=== PATIENT | female | born 1945 | race Caucasian/White ===

== ENCOUNTER → 2017-10-27 08:50 | Outpatient (REF) | payer BC, SELFPAY ==
[2017-10-27 18:40] LABS: Absolute Basophil Count 0.02 k/cumm (0.0-0.2); Absolute Eosinophil Count 0.09 k/cumm (0.0-0.7); Absolute Lymphocyte Count 0.84 k/cumm (1.2-3.4); Absolute Monocyte Count 0.36 k/cumm (0.11-0.7); Absolute Neutrophil Count 1.95 k/cumm (1.2-6.7); Basophils % 0.6; Eosinophils % 2.8; HCT 39.8 % (36.0-46.0); Lymphocytes % 25.8; Mean Corp. HGB Concentration 32.7 g/dL (32.0-36.0); Mean Corpuscular Hemoglobin 29.1 pg (27.0-33.0); Mean Corpuscular Volume 89.2 fL (80-95); Mean Platelet Volume 9.5 fL (8.0-11.0); Neutrophils % 59.8; Platelet Count 242 x1000/uL (130-400); RBC 4.46 m/cumm (4.00-5.20); RBC Distribution Width 12.9 % (11.7-14.6); White Blood Cell Count 3.26 k/cumm (4.4-10.8)
[2017-10-27 18:48] LABS: Anion Gap 4.6 mmol/L (3-11); BUN 14 mg/dL (7-18); CO2 29.4 mmol/L (21.0-32.0); CREATININE 0.73 mg/dL (0.55-1.02); Calcium 9.2 mg/dL (8.5-10.1); Chloride 108 mmol/L (98-107); Glucose 88 mg/dL (70-100); Potassium 4.6 mmol/L (3.5-5.1); Sodium 142 mmol/L (136-145)
== END ==
LOC: NCHCN 08:50
PROVIDERS: PCP Family Medicine; Visit Provider Family Medicine
DX: I10 Essential (primary) hypertension (principal); D70.9 Neutropenia, unspecified
CPT/HCPCS: 80048; 85025

== ENCOUNTER 2017-12-08 00:13 | Outpatient (CLI) | payer BC, SELFPAY ==
--- NOTE | 2017-12-08 10:15 | DI.MAMMO_ITS ---
SYMPTOM/DIAGNOSIS:SCREENING, Z12.31 MAMMOGRAMS: Mammograms were interpreted according to the usual protocol including computer analysis with CAD system, tomosynthesis and C view imaging. Comparison with prior examinations. Breast density B. No masses or microcalcifications are seen. There is nothing to suggest malignancy. IMPRESSION: Negative mammogram. Routine screening is recommended. Category I. MQSA ASSESSMENT OF FINDINGS: Negative. Category 1. Patient will receive a letter notifying them of these results. BI-RADS category B. There are scattered areas of fibroglandular density.
== END 2017-12-08 00:33 ==
PROVIDERS: PCP Family Medicine; Visit Provider Family Medicine
DX: Z12.31 Encounter for screening mammogram for malignant neoplasm of breast (principal)
CPT/HCPCS: 77063; 77067

== ENCOUNTER 2018-12-09 01:27 | Outpatient (CLI) | payer BC, SELFPAY ==
--- NOTE | 2018-12-09 10:48 | DI.MAMMO_ITS ---
EXAM: MAMMO SCREENING CLINICAL HISTORY: SCREENING Z12.31. TECHNIQUE: Mammograms were interpreted according to the usual protocol including computer analysis with CAD system, tomosynthesis and C-view imaging. FINDINGS: The breasts are of moderate density with fairly symmetrical distribution of fibroglandular tissue. No dominant mass or clumped microcalcification is identified in either breast. Current examination is c ompared with previous examinations including December 2017 and there has been no gross interval change in appearance in comparison with the previous studies. IMPRESSION: No specific evidence of malignancy at this time. Routine screening examinations are suggested at year ly intervals due to the family history of breast carcinoma. Category 1. Breast density, category B. BI-RADS Cat 1 - Negative. Breast Density - Category B - Scattered areas of fibroglandular density.
== END 2018-12-09 01:47 ==
PROVIDERS: PCP Family Medicine; Visit Provider Family Medicine
DX: Z12.31 Encounter for screening mammogram for malignant neoplasm of breast (principal); Z80.3 Family history of malignant neoplasm of breast
CPT/HCPCS: 77063; 77067

== ENCOUNTER 2019-11-12 16:28 | Outpatient (REF) | payer BC, SELFPAY ==
[2019-11-12 20:32] LABS: HCT 39.9 % (36.0-46.0); MCH 29.4 pg (27.0-33.0); MCHC 32.6 % (32.0-36.0); MCV 90.3 fL (80-95); MPV 9.7 fL (8.0-11.0); Platelet Count 259 10^3/uL (130-400); RBC 4.42 10^6/uL (3.93-5.22); RDW 12.5 % (11.7-14.6); RDW-SD 41.2 fL; WBC 5.74 10^3/uL (4.4-10.8)
[2019-11-12 21:09] LABS: ALT 20 U/L (14-59); AST 17 U/L (15-37); Albumin 3.8 g/dL (3.4-5.0); Alkaline Phosphatase 64 U/L (46-116); Anion Gap 5.9 mmol/L (3-11); BUN 14 mg/dL (7-18); Bilirubin, Total 0.3 mg/dL (0.2-1.0); CO2 30.1 mmol/L (21.0-32.0); CREATININE 0.76 mg/dL (0.55-1.02); Chloride 104 mmol/L (98-107); Glucose 116 mg/dL (74-106); Potassium 3.8 mmol/L (3.5-5.1); Sodium 140 mmol/L (136-145); TSH (W/Ref FT4) 0.28 uIU/mL (0.36-3.74); Total Protein 6.8 g/dL (6.4-8.2); Vitamin B12 378 pg/mL (193-986)
[2019-11-12 21:10] LABS: Folate > 20.0 ng/mL (8.6-20.0)
[2019-11-15 12:00] LABS: Syphilis Serology (RPR) Negative (Negative)
== END 2019-11-12 16:48 ==
LOC: NCHCN 16:28
PROVIDERS: PCP Family Medicine; Visit Provider Family Medicine
DX: R41.3 Other amnesia (principal); D70.9 Neutropenia, unspecified; I10 Essential (primary) hypertension
CPT/HCPCS: 80053; 85027; 82607; 82746; 84439; 84443; 86592

== ENCOUNTER 2019-11-24 01:17 | Outpatient (CLI) | payer BC, SELFPAY ==
--- NOTE | 2019-11-24 | DI.MRI_ITS ---
EXAM: MR BRAIN WO CLINICAL HISTORY: MEMORY DEFICIT,R41.3 TECHNIQUE: Multiplanar multisequence MRI of the brain was performed. COMPARISON: No exams were available for comparison FINDINGS: VENTRICLES AND EXTRA AXIAL SPACES: Normal in size and morphology for the patient's age. MIDLINE SHIFT: None. CEREBRAL PARENCHYMA: No focus of restricted diffusion to suggest acute infarct. No space-occupying le marnie identified. HEMORRHAGE: None. BRAINSTEM/CEREBELLUM: Normal. CALVARIUM: Normal. VISUALIZED PARANASAL SINUSES/MASTOIDS:Clear. [place]OM[place] OF URIBE: Normal flow void. PITUITARY GLAND: Unremarkable. OTHER FINDINGS: None. IMPRESSION: Unremarkable MRI of the brain. DATA REPOSITORY:
== END 2019-11-24 01:37 ==
PROVIDERS: PCP Family Medicine; Visit Provider Family Medicine
DX: R41.3 Other amnesia (principal)
CPT/HCPCS: 70551

== ENCOUNTER 2020-02-15 19:47 | Outpatient (REF) | payer BC, SELFPAY ==
[2020-02-15 15:30] LABS: TSH (W/Ref FT4) 0.75 uIU/mL (0.36-3.74); Vitamin B12 538 pg/mL (193-986)
[2020-02-15 21:26] LABS: T3,Free 3.7 pg/mL (2.8-5.3)
[2020-02-15 22:48] LABS: Thyroperoxidase Antibody <28 U/mL (<=60)
[2020-02-16 16:40] LABS: Thyrotropin Receptor Ab <1.10 IU/L
[2020-02-17 15:09] LABS: Thyroglobulin Antibody 15 U/mL (<=60)
== END 2020-02-15 20:07 ==
LOC: NCHCN 19:47
PROVIDERS: PCP Family Medicine; Visit Provider Family Medicine
DX: E05.80 Other thyrotoxicosis without thyrotoxic crisis or storm (principal); E53.8 Deficiency of other specified B group vitamins
CPT/HCPCS: 82607; 84235; 84443; 84481; 86376; 86800

== ENCOUNTER 2020-05-22 02:23 | Outpatient (CLI) | payer BC, SELFPAY ==
--- NOTE | 2020-05-22 | DI.MAMMO_ITS ---
EXAM: MG MAMMO SCREENING CLINICAL HISTORY: SCREENING, Z12.31. TECHNIQUE: Bilateral full field digital CC and MLO mammographic images were obtained with 3D tomosyn thesis and utilizing computer aided detection (CAD). COMPARISON: Prior mammograms dating back to 2010, the most recent being 2019.. Significant family history. Her sister was diagnosed with breast cancer at age 40. FINDINGS: There are no new spiculated masses nor malignant appearing microcalcification groups. Numerous benign-appearing microcalcifications in both breasts are unchanged. There is no significant architectural distortion nor skin thickening-retraction. IMPRESSION: Benign findings. No radiographic evidence of malignancy. BI-RADS Category 2 - Benign Findings Breast Density - Category B - Scattered areas of fibroglandular density Breast density Category C or D implies that the patient has dense breast tissue. Dense breast tissue can make it harder to find cancer on a mammogram. Dense breast tissue is also associated with an incr eased risk of breast cancer. This information about the result of the mammogram report was provided to the patient to raise their awareness. Use this report when you speak with the patient about their risks for breast cancer, which includes their family history. At that time, you may recommend additional screening tests (Ultrasoun d or MRI) as these tests may add significant information. A negative radiographic report should not delay biopsy if a dominant or clinically suspicious mass is present. Up to ten percent of cancers are not identified on mammography. A negative report may reinforce clinical impression. Adenosis and dense breasts may obscure an underlying neoplasm. False positive reports average 6 to 10%. Patient will receive a letter notifying them of these results.
== END 2020-05-22 02:43 ==
PROVIDERS: PCP Family Medicine; Visit Provider Family Medicine
DX: Z12.31 Encounter for screening mammogram for malignant neoplasm of breast (principal)
CPT/HCPCS: 77063; 77067

== ENCOUNTER 2020-12-04 16:46 | Outpatient (REF) | payer BC, SELFPAY ==
[2020-12-04 20:50] LABS: Anion Gap 5.7 mmol/L (3-11); BUN 14 mg/dL (7-18); CO2 31.3 mmol/L (21.0-32.0); CREATININE 0.8 mg/dL (0.55-1.02); Calcium 9.2 mg/dL (8.5-10.1); Chloride 104 mmol/L (98-107); Glucose 107 mg/dL (74-106); Potassium 3.9 mmol/L (3.5-5.1); Sodium 141 mmol/L (136-145); TSH (W/Ref FT4) 0.36 uIU/mL (0.36-3.74); Vitamin B12 1047 pg/mL (193-986)
[2020-12-04 20:52] LABS: Folate > 20.0 ng/mL (8.6-20.0)
== END 2020-12-04 16:47 | disposition home or self-care (01) ==
LOC: NCHCN 16:46
PROVIDERS: PCP Family Medicine; Visit Provider Family Medicine
DX: I10 Essential (primary) hypertension (principal); E53.8 Deficiency of other specified B group vitamins; D70.9 Neutropenia, unspecified
CPT/HCPCS: 80048; 82607; 82746; 84443

== ENCOUNTER 2021-05-24 02:03 | Outpatient (CLI) | payer BC, SELFPAY ==
--- NOTE | 2021-05-24 12:30 | DI.MAMMO_ITS ---
Exam(s) MAMMO SCREENING EXAM: MAMMO SCREENING CLINICAL HISTORY: SCREENING, Z12.31 TECHNIQUE: Bilateral full field digital CC and MLO mammographic images were obtained with 3D tomosyn thesis and utilizing computer aided detection (CAD). COMPARISON: Available for comparison. FINDINGS: Masses/Architectural Distortion: None seen. Microcalcifications: No suspicious pleomorphic-type are seen. Skin Thickening/Nipple Retraction: None. IMPRESSION: 1. No significant interval change with no specific features of malignancy noted. 2. Unless there is more urgent need, screening mammography is recommended, as per [employer] guidelines. BI-RADS Category 1 - Negative Breast Density - Category B - Scattered areas of fibroglandular density Breast density category C or D implies that the patient has dense breast tissue. Dense breast tissue is very common and is not abnormal but dense breast tissue can make it harder to find cancer on a ma mmogram. Also, dense breast tissue may increase their breast cancer risk. This information about the result of the mammogram report was provided to the patient to raise their awareness. Use this report when you speak with the patient about their risks for breast cancer, which includes their family hist ory. At that time, you may recommend for more screening tests (Ultrasound or MRI) as they might be us eful based on their risk. A negative radiographic report should not delay biopsy if a dominant or clinically suspicious mass is present. Up to ten percent of cancers are not identified on mammography. A negative report may reinforce clinical impression. Adenosis and dense breasts may obscure an underlying neoplasm. False positive reports average 6 to 10%. Patient will receive a letter notifying them of these results.
--- NOTE | 2021-05-24 13:00 | DI.DEXA_ITS ---
Exam(s) XR DEXA BONE DENSITY W/WO KYLAH EXAM: XR DEXA BONE DENSITY W/WO KYLAH CLINICAL HISTORY: OSTEOPENIA, M85.80 TECHNIQUE: COMPARISON: Comparison 10/17/2015. FINDINGS: Lateral Spine Image: Unremarkable. No compression deformities identified. Left hip: Total T-Score: -1.0. This compares to -0.1 on the prior examination. Total Z-Score: 0.9 T- and Z-scores: Within normal limits. Lumbar Spine: Total T-Score: 0.2. This compares to 0.8 on the prior examination. Total Z-Score: 2.7 T- and Z-scores: Within normal limits. IMPRESSION: No evidence of osteoporosis in the left hip or lumbar spine. There has been a decrease in the bone m ineral density since the prior examination.
== END 2021-05-24 02:23 ==
PROVIDERS: PCP Family Medicine; Visit Provider Family Medicine
DX: Z13.820 Encounter for screening for osteoporosis (principal)
CPT/HCPCS: 77063; 77067; 77080

== ENCOUNTER 2021-12-14 15:28 | Outpatient (REF) | payer BC, SELFPAY ==
[2021-12-14 16:40] LABS: HCT 39.1 % (36.0-46.0); HGB 12.9 g/dL (11.2-15.7); MCH 29.2 pg (27.0-33.0); MCV 89 fL (80-95); MPV 9.8 fL (8.0-11.0); Platelet Count 230 10^3/uL (130-400); RBC 4.42 10^6/uL (3.93-5.22); RDW 12.4 % (11.7-14.6); RDW-SD 40.5 fL; WBC 3.74 10^3/uL (4.4-10.8)
[2021-12-14 17:04] LABS: Anion Gap 6.2 mmol/L (3-11); BUN 14 mg/dL (7-18); CO2 30.8 mmol/L (21.0-32.0); CREATININE 0.7 mg/dL (0.55-1.02); Calcium 9.8 mg/dL (8.5-10.1); Chloride 105 mmol/L (98-107); Estimated GFR 89.58 (mL/min/1.73m2); Glucose 90 mg/dL (74-106); Potassium 4.5 mmol/L (3.5-5.1); Sodium 142 mmol/L (136-145); Vitamin B12 460 pg/mL (193-986)
== END 2021-12-14 15:29 | disposition home or self-care (01) ==
LOC: NCHCN 15:28
PROVIDERS: PCP Family Medicine; Visit Provider Family Medicine
DX: I10 Essential (primary) hypertension (principal); E53.8 Deficiency of other specified B group vitamins; D70.9 Neutropenia, unspecified
CPT/HCPCS: 80048; 85027; 82607

== ENCOUNTER 2022-02-26 01:57 | Outpatient (CLI) | payer BC, SELFPAY ==
--- NOTE | 2022-02-26 | DI.US_ITS ---
APPROVED REPORT EXAM: Comprehensive 2D, Doppler, and color-flow Echocardiogram Patient Location: Out-Patient [facility] Worker: Josseline Merino RDCS (AE) Indications: Systolic heart murmur Other Information Study Quality: Adequate Conclusion Normal left ventricular wall thickness and chamber size. Estimated ejection fraction is 60 to 65%. Wall motion is normal Normal right ventricular size and systolic function Both atria are normal in size The aortic valve is sclerotic and trileaflet without stenosis or regurgitation Mild mitral annular calcification. Trace mitral regurgitation Normal tricuspid valve with mild regurgitation. Estimated right ventricular systolic pressure is 21 mmHg Mildly dilated ascending aorta measuring 3.45 cm Wall motion Left Ventricle The left ventricle is normal size. The left ventricular systolic function is normal. The left ventric ular ejection fraction is within the normal range. There is normal left ventricular wall thickness. T here is normal LV segmental wall motion. There is no ventricular septal defect visualized. LVEF is 60 -65%. Right Ventricle The right ventricle is normal size. The right ventricular systolic function is normal. The RVSP is 21 .3mmHg. Atria The left atrium size is normal. The right atrium size is normal. The interatrial septum is intact wit h no evidence for an atrial septal defect. Aortic Valve The Aortic valve is sclerotic. Aortic valve is trileaflet. There is no aortic valvular stenosis. No a ortic regurgitation is present. Mitral Valve There is mitral annular calcification. No evidence of mitral valve stenosis. Trace mitral regurgitati on. Tricuspid Valve The tricuspid valve is normal in structure. There is no tricuspid valve stenosis. Mild tricuspid regu rgitation. Pulmonic Valve The pulmonary valve is normal in structure. There is no pulmonic valvular stenosis. There is no pulmo bg valvular regurgitation. Great Vessels The aortic root is normal in size. The ascending aorta is mildly dilated. Aortic arch is normal in ca liber. IVC is normal in size and collapses >50% with inspiration. Pericardium There is no pericardial effusion. 2D Dimensions IVSD d PLAX 0.87 cm F: 0.6-1.0 LV Vol A2C d MOD 86.7 mL LVPW d PLAX 0.75 cm F: 0.6 - 1.0 LV Vol A4C d MOD 80.6 mL LVID d PLAX 4.43 cm F: 3.8 - 5.2 LA vol/ BSA A2C s A-L 22.8 mL/m2 LVDs 2.90 cm F: 2.2 - 3.5 LA vol/ BSA A4C s A-L 20.6 mL/m2 Ao Root d 3.10 cm F: 2.7 - 3.3 LA Vol/ BSA Biplane s A-L 22.5 mL/m2 RA Area A4C 12.12 cm2 LA Area A4C s MOD 13.87 cm2 RA Vol/ BSA A4C s A-L 16.1 mL/m2 LA Area A2C s MOD 15.16 cm2 Ao Asc Diam d 3.45 cm F: 2.3 - 3.1 LV EF A4C MOD 65.2 % LV EF Teichholz 62.5 % LV EF A2C MOD 67.0 % LVEF (Grant's) 66.17 % F: 54 - 74 LV EF Biplane MOD 66.2 % LV Volume 66.55 mL F: 46 - 106 SV 55.68 mL LV Volume Index 38.69 mL/m2 F: 29 - 61 SV Index 32.40 mL/m2 LV Vol Biplane MOD 84.1 mL FS 33.50 % M-Mode TAPSE 3.12 cm (M/F) >1.7 LV Diastology MV E' medial 0.059 (>0.07 m/s) E/A Ratio 0.8 LV E/e MED 14.45 (<14) MV E Vmax 0.85 (0.4-1.3 m/s) MV E' lateral 0.070 (>0.1 m/s) MV A Vmax 1.10 (0.4-1.3 m/s) LV E/e LAT 12.10 (<14) MV E/A Ratio 0.75 MV E/E' medial 14.48 MV E/E' lateral 12.12 Aortic Valve LVOT Area 3.56 cm2 AoV Area Vmax 1.66 cm2 LVOT Vmax 0.88 m/s AoV Area/ BSA (Vmax) 0.96 cm2/m2 LVOT Mean Jabier. 0.59 m/s WESTON Mean Jabier. 1.51 cm2 LVOT Peak Grad 3.1 mmHg WESTON Mean Jabier. Index 0.88 cm2/m2 LVOT Mean Grad 1.6 mmHg LVOT VTI 0.210 m LVOT Diam s 2.10 cm AoV Vmax 1.89 m/s Velocity Ratio 0.47 AoV Mean Jabier. 1.40 m/s AoV Peak Grad 14.3 mmHg LVOT SV 74.63 mL AoV Mean Grad 8.6 mmHg AoV VTI 0.438 m AoV Area VTI 1.70 cm2 AoV Area/ BSA (VTI) 0.99 cm/m2 Mitral Valve MV DT 236 (160-240 msec) MV PHT 68 msec MV Area PHT 3.21 cm2 MV VTI 0.325 m MV Area VTI 2.30 (4.0-6.0 cm2) Pulmonary Valve PV Vmax 1.01 (0.5-1.5 m/s) RVOT Peak Gr. 2.06 mmHg PV Peak Grad 4.1 mmHg RVOT Mean Gr. 1.05 mmHg PV Mean Grad 2.1 mmHg RVOT VTI 0.164 m PV VTI 0.178 m RVOT Vmax 0.72 m/s Tricuspid Valve TR Peak Grad 18.2 mmHg TR Vmax 2.14 m/s RA Pressure 3.00 mmHg RVSP (TR) 21.3 mmHg
== END 2022-02-26 02:17 ==
LOC: DI 01:58
PROVIDERS: PCP Family Medicine; Visit Provider Family Medicine
DX: R01.1 Cardiac murmur, unspecified (principal)
CPT/HCPCS: 93306

== ENCOUNTER 2022-05-27 01:48 | Outpatient (CLI) | payer BC, SELFPAY ==
--- NOTE | 2022-05-27 | DI.MAMMO_ITS ---
Exam(s) MAMMO SCREENING EXAM: MAMMO SCREENING CLINICAL HISTORY: SCREENING MAMMO FOR BREAST CANCER Z12.31 TECHNIQUE: Mammograms were interpreted according to the usual protocol including computer analysis w [employer] CAD system, tomosynthesis and C-view imaging. COMPARISON: 2012 through 2021 FINDINGS: The breasts are composed of scattered fibroglandular densities, Breast Density category B. No suspicious masses or suspicious microcalcifications are seen. Cysts scattered bilateral skin calc ifications again noted. No skin thickening or abnormal axillary lymph nodes are seen. There has been no significant change from prior exams. IMPRESSION: BI-RADS Cat 2 - Benign Findings Yearly screening mammography is recommended. Breast Density - Category B, scattered fibroglandular densities. A negative radiographic report should not delay biopsy if a dominant or clinically suspicious mass is present. Up to ten percent of cancers are not identified on mammography. A negative report may reinforce clinical impression. Adenosis and dense breasts may obscure an underlying neoplasm. False positive reports average 6 to 10%. Patient will receive a letter notifying them of these results.
== END 2022-05-27 02:08 ==
LOC: DI 01:48
PROVIDERS: PCP Family Medicine; Visit Provider Family Medicine
DX: Z12.31 Encounter for screening mammogram for malignant neoplasm of breast (principal)
CPT/HCPCS: 77063; 77067

== ENCOUNTER 2022-12-20 09:25 | Outpatient (REF) | payer BC, SELFPAY ==
[2022-12-20 16:12] LABS: HGB 13.1 g/dL (11.2-15.7); MCH 29.2 pg (27.0-33.0); MCHC 32.8 % (32.0-36.0); MCV 89 fL (80-95); MPV 9.7 fL (8.0-11.0); Platelet Count 239 10^3/uL (130-400); RBC 4.48 10^6/uL (3.93-5.22); RDW 12.4 % (11.7-14.6); RDW-SD 40.5 fL; WBC 4.15 10^3/uL (4.4-10.8)
[2022-12-20 16:55] LABS: ALT 19 U/L (14-59); AST 16 U/L (15-37); Albumin 3.7 g/dL (3.4-5.0); Alkaline Phosphatase 71 U/L (46-116); Anion Gap 9.1 mmol/L (3-11); BUN 15 mg/dL (7-18); Bilirubin, Total 0.5 mg/dL (0.2-1.0); CO2 29.9 mmol/L (21.0-32.0); CREATININE 0.7 mg/dL (0.55-1.02); Calcium 9.7 mg/dL (8.5-10.1); Chloride 105 mmol/L (98-107); Estimated GFR 89.02 (mL/min/1.73m2); Glucose 89 mg/dL (74-106); Potassium 4.1 mmol/L (3.5-5.1); Sodium 144 mmol/L (136-145); Total Protein 6.9 g/dL (6.4-8.2); Vitamin B12 683 pg/mL (193-986)
== END 2022-12-20 09:26 | disposition home or self-care (01) ==
LOC: NCHCN 09:25
PROVIDERS: PCP Family Medicine; Visit Provider Family Medicine
DX: I10 Essential (primary) hypertension (principal); E53.8 Deficiency of other specified B group vitamins
CPT/HCPCS: 80053; 85027; 82607

== ENCOUNTER 2024-04-26 17:52 | Outpatient (REF) | payer BC, SELFPAY ==
[2024-04-26 20:12] LABS: HCT 41.7 % (36.0-46.0); HGB 13.6 g/dL (11.2-15.7); MCH 29.6 pg (27.0-33.0); MCHC 32.6 % (32.0-36.0); MCV 91 fL (80-95); MPV 9.3 fL (8.0-11.0); Platelet Count 237 10^3/uL (130-400); RDW 12.6 % (11.7-14.6); RDW-SD 41.2 fL; WBC 6.48 10^3/uL (4.4-10.8)
[2024-04-26 20:45] LABS: ALT 18 U/L (14-59); AST 16 U/L (15-37); Albumin 3.8 g/dL (3.4-5.0); Alkaline Phosphatase 74 U/L (46-116); Anion Gap 5.7 mmol/L (3-11); BUN 13 mg/dL (7-18); Bilirubin, Total 0.29 mg/dL (0.2-1.0); CO2 30.3 mmol/L (21.0-32.0); CREATININE 0.8 mg/dL (0.55-1.02); Calcium 9.5 mg/dL (8.5-10.1); Chloride 107 mmol/L (98-107); Glucose 146 mg/dL (74-106); Potassium 4.2 mmol/L (3.5-5.1); Sodium 143 mmol/L (136-145); TSH 0.77 uIU/mL (0.36-3.74); Total Protein 7.1 g/dL (6.4-8.2); Vitamin B12 574 pg/mL (193-986)
[2024-04-26 20:46] LABS: Folate > 20.0 ng/mL (8.6-20.0)
== END 2024-04-26 17:53 | disposition home or self-care (01) ==
LOC: NCHCN 17:52
PROVIDERS: PCP Family Medicine; Visit Provider Family Medicine
DX: F03.90 Unspecified dementia, unspecified severity, without behavioral disturbance, psychotic disturbance, mood disturbance, and anxiety (principal)
CPT/HCPCS: 80053; 85027; 82607; 82746; 84443

== ENCOUNTER 2024-05-17 01:17 | Outpatient (CLI) | payer BC, SELFPAY ==
--- NOTE | 2024-05-17 13:00 | DI.MAMMO_ITS ---
Exam(s) MAMMO SCREENING EXAM: MAMMO SCREENING CLINICAL HISTORY: Z12.31 Screening TECHNIQUE: Mammograms were interpreted according to the usual protocol including computer analysis w [employer] CAD system, tomosynthesis and C-view imaging. COMPARISON: 2014 through 2022 FINDINGS: The breasts are composed of scattered fibroglandular densities, Breast Density category B. No suspicious masses or suspicious microcalcifications are seen. No skin thickening or abnormal axillary lymph nodes are seen. There has been no significant change from prior exams. IMPRESSION: BI-RADS Category 1, Negative mammogram Yearly screening mammography is recommended. Breast Density - Category B, scattered fibroglandular densities. A negative radiographic report should not delay biopsy if a dominant or clinically suspicious mass is present. Up to ten percent of cancers are not identified on mammography. A negative report may reinforce clinical impression. Adenosis and dense breasts may obscure an underlying neoplasm. False positive reports average 6 to 10%. Patient will receive a letter notifying them of these results.
== END 2024-05-17 01:37 ==
LOC: DI 01:18
PROVIDERS: PCP Family Medicine; Visit Provider Family Medicine
DX: Z12.31 Encounter for screening mammogram for malignant neoplasm of breast (principal); R92.323 Mammographic fibroglandular density, bilateral breasts
CPT/HCPCS: 77063; 77067